=== PATIENT | female | born 2000 | race Caucasian/White ===

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

== ENCOUNTER 2022-12-18 00:25 | Emergency (ER) | payer MEDICAID ==
[~2022-12-18] VITALS: Ht 160 cm; Wt 59.0 kg
[2022-12-18 00:30] VITALS: BP 108/44
--- NOTE | 2022-12-18 00:30 | NUR ---
BIB checked in to ED for 03/03 c/o chest pain x 5 days and left upper kidney pain that per patient is chronic. per pt, pmhx kidney disease. denies allergies. Addendum: 12/18/22 at 0147 by [email or web address] *c/o LUQ abd pain
--- NOTE | 2022-12-18 00:30 | NUR ---
Dr. Bob evaluating patient at this time
[2022-12-18 01:16] LABS: BASOPHILS % (AUTO) 0.3 % (0.0-2.0); EOSINOPHILS # (AUTO) 0.6 K/uL (0-0.4); EOSINOPHILS % (AUTO) 5.9 % (0.0-4.0); HEMATOCRIT 36.2 % (36-48); HEMOGLOBIN 11.8 g/dL (12.0-16.0); LYMPHOCYTES # (AUTO) 4.2 K/uL (2.5-16.5); LYMPHOCYTES % (AUTO) 43.9 % (20.5-51.1); MEAN CORPUSCULAR HEMOGLOBIN 26 pg (27-31); MEAN CORPUSCULAR HGB CONC 33 g/dL (33-37); MEAN CORPUSCULAR VOLUME 79.8 fL (80-94); MONOCYTES # (AUTO) 0.5 K/uL (0.8-1.0); MONOCYTES % (AUTO) 5.7 % (1.7-9.3); NEUTROPHILS # (AUTO) 4.2 K/uL (1.8-7.7); NEUTROPHILS % (AUTO) 44.2 % (42.2-75.2); PLATELET COUNT (AUTO) 431 K/uL (140-450); RED BLOOD CELL COUNT(AUTO) 4.53 MIL/uL (4.20-5.40); RED CELL DISTRIBUTION WIDTH 16.8 % (11.6-13.7); WHITE BLOOD COUNT (AUTO) 9.6 K/uL (4.5-11.0)
[2022-12-18 02:25] LABS: APPEARANCE,URINE CLEAR (CLEAR); BILIRUBIN,URINE NEGATIVE (NEGATIVE); BLOOD, URINE 2+ (NEGATIVE); COLOR,URINE YELLOW (YELLOW); LEUKOCYTE ESTERASE ,URINE NEGATIVE (NEGATIVE); NITRITE, URINE POSITIVE (NEGATIVE); UGLUCOSE NEGATIVE (NEGATIVE)
[2022-12-18 02:28] LABS: RBC,URINE 0-5 /HPF (0-5)
[2022-12-18 03:09] LABS: ANION GAP 15.4 (8-16); CARBON DIOXIDE 25.1 mmol/L (21-32); POTASSIUM 3.5 mmol/L (3.5-5.1)
[2022-12-18 03:11] LABS: CREATININE 0.7 mg/dL (0.6-1.3)
[2022-12-18 03:15] LABS: ALBUMIN 3.9 g/dL (3.4-5.0); TOTAL BILIRUBIN 0.5 mg/dL (0.0-1.0)
[2022-12-18] MEDS ORDERED: cefTRIAXone 1,000 MG in LIDOCAINE MPF 1% 2.1 ML IM ONE (03:40)
[2022-12-18] MEDS ORDERED: LIDOCAINE MPF 1% 5 ML ONE (03:48)
[2022-12-18] MEDS ORDERED: cefTRIAXone 1,000 MG VIAL ONE (03:48)
[2022-12-18 04:20] VITALS: BP 102/64
--- NOTE | 2022-12-18 04:20 | NUR ---
Patient discharged with v/s stable. Written and verbal after care instructions given and explained. New rx tylenol and macrobid. Patient verbalized understanding. Ambulatory with steady gait. All questions addressed prior to discharge. Advised to follow up with PMD.
[2022-12-18] MEDS ORDERED: NITR100C7 PO (04:23)
[2022-12-18] MEDS ORDERED: ACET-10509 PO (04:23)
== END 2022-12-18 04:20 | disposition home or self-care (01) ==
LOC: MED 00:25
DX: N39.0 Urinary tract infection, site not specified (principal); Z98.890 Other specified postprocedural states; Z79.1 Long term (current) use of non-steroidal anti-inflammatories (NSAID); Z79.2 Long term (current) use of antibiotics
CPT/HCPCS: 36415; 74176; 80053; 81001; 81025; 85025; 87086; 96372; 99285; J0696; J2001

== ENCOUNTER 2024-01-26 21:26 | Emergency (ER) | payer MEDICAID ==
[~2024-01-26] VITALS: Ht 160 cm; Wt 54.4 kg
[~2024-01-26 21:26] MED LIST: ACET-10509 PO; NITR100C7 PO
[2024-01-26 21:40] VITALS: BP 100/67; PULSE 120; RESP 17; TEMP 98; O2SAT 98
[2024-01-26 22:07] LABS: BASOPHILS % (AUTO) 0.3 % (0.0-2.0); EOSINOPHILS # (AUTO) 0.1 K/uL (0-0.4); EOSINOPHILS % (AUTO) 0.6 % (0.0-4.0); HEMATOCRIT 47.3 % (36-48); HEMOGLOBIN 16.6 g/dL (12.0-16.0); LYMPHOCYTES # (AUTO) 3.1 K/uL (2.5-16.5); LYMPHOCYTES % (AUTO) 17.7 % (20.5-51.1); MEAN CORPUSCULAR HEMOGLOBIN 28 pg (27-31); MEAN CORPUSCULAR HGB CONC 35 g/dL (33-37); MEAN CORPUSCULAR VOLUME 78.8 fL (80-94); MONOCYTES # (AUTO) 0.9 K/uL (0.8-1.0); NEUTROPHILS # (AUTO) 13.3 K/uL (1.8-7.7); NEUTROPHILS % (AUTO) 76.4 % (42.2-75.2); PLATELET COUNT (AUTO) 462 K/uL (140-450); RED CELL DISTRIBUTION WIDTH 14.3 % (11.6-13.7); WHITE BLOOD COUNT (AUTO) 17.4 K/uL (4.8-10.8)
[2024-01-26 22:20] VITALS: O2SAT 97
[2024-01-26 22:32] LABS: CALCIUM 9.9 mg/dL (8.5-10.1); CARBON DIOXIDE 23.6 mmol/L (21-32); CREATININE 0.9 mg/dL (0.6-1.3)
[2024-01-26 22:37] LABS: APPEARANCE,URINE CLEAR (CLEAR); BILIRUBIN,URINE 1+ (NEGATIVE); BLOOD, URINE 2+ (NEGATIVE); COLOR,URINE YELLOW (YELLOW); LEUKOCYTE ESTERASE ,URINE TRACE (NEGATIVE); NITRITE, URINE NEGATIVE (NEGATIVE); PROTEIN,URINE NEGATIVE (NEGATIVE); UGLUCOSE NEGATIVE (NEGATIVE)
[2024-01-26 22:52] LABS: ANION GAP 23.8 (8-16)
[2024-01-26 22:56] LABS: POTASSIUM 2.4 mmol/L (3.5-5.1)
[2024-01-26 22:57] LABS: ALBUMIN 4.6 g/dL (3.4-5.0); BILIRUBIN,DIRECT 1.5 mg/dL (0.0-0.3); TOTAL BILIRUBIN 3.2 mg/dL (0.0-1.0); TOTAL PROTEIN, SERUM 8.8 g/dL (6.4-8.2)
[2024-01-26 23:09] LABS: ICTOTEST NEGATIVE (NEGATIVE)
[2024-01-26 23:11] LABS: BACTERIA,URINE 1+ /HPF (None Seen); RBC,URINE 0-5 /HPF (0-5); SQUAMOUS EPITHELIAL CELL,UR 4-10 (MOD) /LPF (0-3 (FEW)); WBC,URINE 0-5 /HPF (0-5)
[2024-01-26] MEDS: NACL 0.9% 1,000 ML IV ONE (23:53)
[2024-01-27] MEDS: ONDANSETRON 4 MG/2 ML VIAL IVP ONE (00:13)
[2024-01-27] MEDS: KCL 20 MEQ IN 100 mL PREMIX 200 ML IV ONE (00:13)
[2024-01-27] MEDS: POTASSIUM CHLORIDE 10 MEQ TABER PO ONE (00:49)
[2024-01-27 00:52] VITALS: O2SAT 96
[2024-01-27] MEDS: DEXT 5% / NACL 0.9% 500 ML IV ONE (01:55)
[2024-01-27 02:45] VITALS: O2SAT 99
[2024-01-27 04:57] VITALS: O2SAT 100
[2024-01-27 05:04] VITALS: BP 113/52; PULSE 88; RESP 15; TEMP 97.8; O2SAT 100
[2024-01-27] MEDS ORDERED: DOXY1TCP PO (05:37)
[2024-01-27] MEDS ORDERED: ONDA-188 PO (05:37)
== END 2024-01-27 05:47 | disposition home or self-care (01) ==
LOC: MED 21:26
DX: O21.0 Mild hyperemesis gravidarum (principal); Z3A.10 10 weeks gestation of pregnancy; D72.829 Elevated white blood cell count, unspecified; E86.0 Dehydration; R82.4 Acetonuria; Z79.899 Other long term (current) drug therapy
CPT/HCPCS: 36415; 76801; 80048; 80076; 81001; 81025; 83690; 85025; 96365; 96366; 96375; 99291; J2405; J3480; J7030; Q0092; 96361; 96367; 96368; 96374; 99285